=== PATIENT | female | born 1950 | race Caucasian/White ===

== ENCOUNTER 2020-11-01 16:10 | Emergency (ER) | payer MEDICARE, BC ==
[~2020-11-01] VITALS: Ht 160 cm; Wt 50.3 kg
--- NOTE | 2020-11-01 16:56 | NUR ---
[email or web address], medical screening exam in progress
--- NOTE | 2020-11-01 17:40 | NUR ---
"I can't wait any longer." patient verbalized. MD is aware.
[2020-11-01] MEDS ORDERED: CYCL5TAB PO (18:23)
--- NOTE | 2020-11-01 18:24 | NUR ---
Patient is not in her room, eloped? notified.
== END 2020-11-01 18:24 | disposition home or self-care (01) ==
LOC: ER 16:10
DX: M79.605 Pain in left leg (principal); M25.462 Effusion, left knee; W18.41XA Slipping, tripping and stumbling without falling due to stepping on object, initial encounter; Y92.89 Other specified places as the place of occurrence of the external cause; S13.4XXA Sprain of ligaments of cervical spine, initial encounter; V49.60XA Unspecified car occupant injured in collision with unspecified motor vehicles in traffic accident, initial encounter; Y92.410 Unspecified street and highway as the place of occurrence of the external cause; E78.5 Hyperlipidemia, unspecified; Z88.6 Allergy status to analgesic agent
CPT/HCPCS: 72125; A4663